=== PATIENT | female | born 1950 | race Caucasian/White ===

== ENCOUNTER 2016-07-28 15:24 | Emergency (ER) | payer MEDICAID ==
[~2016-07-28] VITALS: Ht 149.9 cm; Wt 65.0 kg
[2016-07-28 15:27] VITALS: BP 103/56; PULSE 106; RESP 16; TEMP 97.7; O2SAT 98
--- NOTE | 2016-07-28 15:34 | PD ---
Physical Exam Time Seen by Provider: 15:30 Narrative 66yo F c/o low blood pressure at vascular surgeon office. Dr sent to ER. [place] lightheaded, dizzy and near syncope with low pressure; feeling better now. BP was 89/56 at the office. Reports chest pain and SOB. Stopped taking Enalapril 2 weeks ago. VS reviewed. Patient seen in triage. Awaiting bed placement. Data Data Last Documented VS Vital Signs Date Time Temp Pulse Resp B/P Pulse Ox O2 Delivery O2 Flow Rate FiO2 07/28/16 15:27 97.7 106 16 103/56 98 MDM Supervised Visit with SHEYLA: Melissa Allen July 28, 2016 15:34
[2016-07-28] MEDS ORDERED: AMIT25TA9 PO (15:52)
[2016-07-28] MEDS ORDERED: SERT-132 PO (15:52)
[2016-07-28] MEDS ORDERED: TRAM50TA PO (15:52)
[2016-07-28] MEDS ORDERED: GABA400C5 PO (15:52)
[2016-07-28] MEDS ORDERED: HUMALOG SQ (15:52)
[2016-07-28] MEDS ORDERED: LEVO88TA2 PO (15:52)
[2016-07-28] MEDS ORDERED: DICL75TA PO (15:52)
[2016-07-28] MEDS ORDERED: SODIUM CHLOR 0.9% 1000 ML INJ 1,000 ML IV ONE ×2 (16:00→16:15)
[2016-07-28] MEDS ORDERED: SODIUM CHLORIDE 0.9% FLUSH 10 ML FLUSH IVF PRN (16:00)
[2016-07-28 16:01] VITALS: O2SAT 97
[2016-07-28 16:25] VITALS: BP 93/54; PULSE 93; RESP 18; O2SAT 97
[2016-07-28 16:28] VITALS: BP_SYST 133; BP_SYST 82; BP_DIAS 52; BP_DIAS 60; RESP 18
--- NOTE | 2016-07-28 16:41 | PD ---
HPI Chief Complaint: Dizziness Time Seen by Provider: 15:40 Travel History International Travel<30 days: No Contact w/Intl Traveler<30days: No Traveled to known affect area: No History of Present Illness HPI Patient is a 66 -year-old female presenting to emergency for evaluation of hypotension. Patient was at her doctor's office when her blood pressure was noted to be in the upper 80s systolic. States this happens several times a week , she stopped blood pressure medications 2 weeks ago. Patient reports that she feels dizzy when her blood pressure drops, she reported mild chest pain which resolved prior to arrival. Patient's past medical history significant for type 2 diabetes, fibromyalgia, peripheral vascular disease, neuropathy, thyroid disease, obesity. Daughter states that her blood sugars are not always well- controlled. Patient takes tramadol for pain, last dose was at noon today. PFSH Past Medical History Cardiovascular Problems: Yes (peripheral vascular disease) Cerebrovascular Accident: Yes (TIA) Diabetes: Yes Neurologic: Yes (peripheral neuropathy) Thyroid Disease: Yes Past Surgical History Appendectomy: Yes (exploratory laparoscopy) Section: Yes Social History Alcohol Use: No Tobacco Use: No Allergies-Medications (Allergen,Severity, Reaction): Coded Allergies: Aspirin (Verified Allergy, Unknown, 07/28/16) Sulfa (Verified Allergy, Unknown, 07/28/16) Reported Meds & Prescriptions Reported Meds & Active Scripts Active Reported Levothyroxine (Levothyroxine Sodium) 88 Mcg Tab 88 Mcg PO DAILY Humalog Inj (Insulin Human Lispro) 1,000 Unit/10 Ml Vial 3 Units SQ TID Max dose at bedtime:( )units; sugars< 70,(0)units; sugars 150-199,(1)unit; sugars 200-249,(3)units; sugars 250-299,(5)units; sugars 300-349,(7)units; sugars more than 349,(9)units. Sertraline (Sertraline HCl) 50 Mg Tab 50 Mg PO DAILY Amitriptyline (Amitriptyline HCl) 25 Mg Tab 25 Mg PO HS Diclofenac Sodium DR (Diclofenac Sodium) 75 Mg Tabdr 75 Mg PO BID Gabapentin 400 Mg Cap 400 Cap PO Q8HRS Tramadol (Tramadol HCl) 50 Mg Tab 50 Mg PO Q4H PRN Review of Systems Except as stated in HPI: all other systems reviewed are Neg Eyes: No: Blurred Vision HENT: No: Headaches, Lightheadedness Cardiovascular: Positive: Chest Pain or Discomfort, No: Tachycardia, Syncope Respiratory: No: Shortness of Breath Gastrointestinal: No: Nausea, Abdominal Pain Neurologic: Positive: Dizziness Physical Exam Narrative GENERAL: Obese, well-developed, alert female. Resting comfortably in no acute distress. SKIN: Focused skin assessment warm/dry. HEAD: Atraumatic. Normocephalic. EYES: Pupils equal and round. No scleral icterus. No injection or drainage. ENT: No nasal bleeding or discharge. Mucous membranes pink and moist. NECK: Trachea midline. No JVD. CARDIOVASCULAR: Regular rate and rhythm. No murmur appreciated. RESPIRATORY: No accessory muscle use. Clear to auscultation. Breath sounds equal bilaterally. GASTROINTESTINAL: Abdomen soft, non-tender, nondistended. Hepatic and splenic margins not palpable. MUSCULOSKELETAL: No obvious deformities. No clubbing. No cyanosis. No edema. NEUROLOGICAL: Awake and alert. No obvious cranial nerve deficits. Motor grossly within normal limits. Normal speech. PSYCHIATRIC: Appropriate mood and affect; insight and judgment normal. Data Data Last Documented VS Vital Signs Date Time Temp Pulse Resp B/P Pulse Ox O2 Delivery O2 Flow Rate FiO2 07/28/16 18:27 96 18 154/77 97 Nasal Cannula 2 07/28/16 15:27 97.7 Orders Electrocardiogram (07/28/16 15:47) Ckmb (Isoenzyme) Profile (07/28/16 15:47) Complete Blood Count With Diff (07/28/16 15:47) Comprehensive Metabolic Panel (07/28/16 15:47) Magnesium (Mg) (07/28/16 15:47) Prothrombin Time / Inr (Pt) (07/28/16 15:47) Act Partial Throm Time (Ptt) (07/28/16 15:47) Troponin I (07/28/16 15:47) Chest, Single Ap (07/28/16 15:47) Ecg Monitoring (07/28/16 15:47) Bilateral Bp Monitoring (07/28/16 15:47) Iv Access Insert/Monitor (07/28/16 15:47) Oximetry (07/28/16 15:47) Oxygen Administration (07/28/16 15:47) Sodium Chloride 0.9% Flush (Ns Flush) (07/28/16 16:00) Sodium Chlor 0.9% 1000 Ml Inj (Ns 1000 M (07/28/16 16:00) Urinalysis - C+S If Indicated (07/28/16 15:49) Orthostatic Blood Pressure (07/28/16 15:51) Orthostatic Vital Signs (07/28/16 15:52) Ct Brain W/O Iv Contrast(Rout) (07/28/16 ) Sodium Chlor 0.9% 1000 Ml Inj (Ns 1000 M (07/28/16 16:15) Urine Culture (07/28/16 17:24) Ceftriaxone Inj (Rocephin Inj) (07/28/16 18:15) Labs Laboratory Tests Test 07/28/16 07/28/16 07/28/16 16:04 17:12 17:24 White Blood Count 10.2 TH/MM3 Red Blood Count 4.97 MIL/MM3 Hemoglobin 13.3 GM/DL Hematocrit 41.1 % Mean Corpuscular Volume 82.9 FL Mean Corpuscular Hemoglobin 26.8 PG Mean Corpuscular Hemoglobin 32.3 % Concent Red Cell Distribution Width 17.6 % Platelet Count 473 TH/MM3 Mean Platelet Volume 9.0 FL Neutrophils (%) (Auto) 74.7 % Lymphocytes (%) (Auto) 12.5 % Monocytes (%) (Auto) 5.0 % Eosinophils (%) (Auto) 7.3 % Basophils (%) (Auto) 0.5 % Neutrophils # (Auto) 7.6 TH/MM3 Lymphocytes # (Auto) 1.3 TH/MM3 Monocytes # (Auto) 0.5 TH/MM3 Eosinophils # (Auto) 0.7 TH/MM3 Basophils # (Auto) 0.1 TH/MM3 CBC Comment DIFF FINAL Differential Comment Prothrombin Time 10.5 SEC Prothromb Time International 1.0 RATIO Ratio Activated Partial 26.2 SEC Thromboplast Time Sodium Level 140 MEQ/L Potassium Level 4.2 MEQ/L Chloride Level 106 MEQ/L Carbon Dioxide Level 26.3 MEQ/L Anion Gap 8 MEQ/L Blood Urea Nitrogen 21 MG/DL Creatinine 0.77 MG/DL Estimat Glomerular Filtration 75 ML/MIN Rate Random Glucose 262 MG/DL Calcium Level 8.4 MG/DL Magnesium Level 1.5 MG/DL Total Bilirubin 0.2 MG/DL Aspartate Amino Transf 23 U/L (AST/SGOT) Alanine Aminotransferase 12 U/L (ALT/SGPT) Alkaline Phosphatase 179 U/L Total Creatine Kinase 71 U/L Troponin I LESS THAN 0.02 NG/ML Total Protein 6.3 GM/DL Albumin 2.4 GM/DL Urine Color YELLOW Urine Turbidity CLEAR Urine pH 5.5 Urine Specific [place] 1.027 Urine Protein 30 mg/dL Urine Glucose (UA) 1000 mg/dL Urine Ketones TRACE mg/dL Urine Occult Blood NEG Urine Nitrite NEG Urine Bilirubin NEG Urine Urobilinogen 4.0 MG/DL Urine Leukocyte Esterase NEG Urine RBC LESS THAN 1 /hpf Urine WBC 2 /hpf Urine WBC Clumps RARE Urine Squamous Epithelial 1 /hpf Cells Urine Bacteria RARE /hpf Urine Hyaline Casts 12 /lpf Urine Mucus FEW /lpf Microscopic Urinalysis Comment CULTURE INDICATED MDM Medical Decision Making Medical Screen Exam Complete: Yes Emergency Medical Condition: Yes Interpretation(s) Vital Signs Date Time Temp Pulse Resp B/P Pulse Ox O2 Delivery O2 Flow Rate FiO2 07/28/16 18:27 96 18 154/77 97 Nasal Cannula 2 07/28/16 17:11 93 18 135/62 97 Nasal Cannula 2 07/28/16 16:28 93 18 82/52 94 18 133/60 07/28/16 16:25 93 18 93/54 97 Nasal Cannula 2 07/28/16 16:01 97 Nasal Cannula 2 07/28/16 15:53 97 Nasal Cannula 2 07/28/16 15:27 97.7 106 16 103/56 98 Differential Diagnosis Orthostatic hypotension versus dehydration versus medication side effect versus autonomic dysfunction Narrative Course Patient is a 66-year-old female presenting to emergency evaluation of hypotension. Patient is alert and oriented, she completed dizziness initially. Labs and imaging ordered and pending, patient presents on a monitor and continuous pulse oximetry. IV access was established daughter at bedside. CBC is unremarkable Chemistry is unremarkable Troponin is negative Coags are unremarkable Chest x-ray shows no acute disease Head CT is normal Urinalysis shows elevated glucose, trace ketones, 4.0 urobilinogen, rare white blood cells, rare bacteria, reflex culture pending. Given IV Rocephin in the emergency department as well as 1 L normal saline. The patient's blood pressure responded to IV fluid hydration, patient was a bleed emergency department and is currently asymptomatic. Daughter states that she has an appointment with a masking machine feeder. Patient is encouraged follow-up with her primary doctor and follow-up with a masking machine feeder as scheduled. She was encouraged to return to emergency department for any new or worsening symptoms. She verbalizes understanding of these instructions. Patient is stable for discharge. Diagnosis Primary Impression: Hypotension Qualified Code: I95.9 - Hypotension, unspecified hypotension type Additional Impression: Urinary tract infection Qualified Code: N39.0 - Urinary tract infection without hematuria, site unspecified Referrals: Director Of Curriculum Primary Care Physician Patient Instructions: General Instructions, Hypotension (ED), Urinary Tract Infection in Women (ED) Additional Instructions: Follow-up with your primary doctor Complete full course of antibiotics as prescribed Increase fluid intake Return to emergency department for any new or worsening symptoms Monitor her blood pressure at home, bring results to primary doctor and masking machine feeder Med/Other Pt SpecificInfo: Prescription(s) given Scripts Cephalexin (Keflex)500 Mg Kck192 Mg PO Q6HR 7 Days Ref 0 Prov:Cleopatra Kirkpatrick 07/28/16 Disposition: 01 DISCHARGE HOME Condition: Stable Cleopatra Kirkpatrick July 28, 2016 16:41
[2016-07-28 16:42] LABS: APTT (PATIENT) 26.2 SEC (24.3-30.1); PROTHROMBIN TIME - PATIENT 10.5 SEC (9.8-11.6)
[2016-07-28 17:11] VITALS: BP 135/62; PULSE 93; RESP 18; O2SAT 97
[2016-07-28 17:13] LABS: AUTOMATED NEUTROPHIL # 7.6 TH/MM3 (1.8-7.7); BASOPHIL # 0.1 TH/MM3 (0-0.2); BASOPHIL % 0.5 % (0.0-2.0); EOSINOPHIL # 0.7 TH/MM3 (0-0.4); EOSINOPHIL % 7.3 % (0.0-4.0); HEMATOCRIT 41.1 % (35.0-46.0); HEMO FLAGS DIFF FINAL; LYMPH % 12.5 % (9.0-44.0); LYMPHOCYTE # 1.3 TH/MM3 (1.0-4.8); MEAN CELL VOLUME 82.9 FL (80.0-100.0); MEAN CORPUSCULAR HEMOGLOBIN 26.8 PG (27.0-34.0); MEAN CORPUSCULAR HGB CONC 32.3 % (32.0-36.0); NEUT % 74.7 % (16.0-70.0); PLATELET COUNT 473 TH/MM3 (150-450); RED BLOOD COUNT 4.97 MIL/MM3 (4.00-5.30); RED CELL DISTRIBUTION WIDTH 17.6 % (11.6-17.2); WHITE BLOOD COUNT 10.2 TH/MM3 (4.0-11.0)
--- NOTE | 2016-07-28 17:20 | RADRPT ---
EXAM DATE/TIME: 07/28/2016 16:49 [facility] COMPARISON: No previous studies available for comparison. INDICATIONS : Diziness with low blood pressure. RADIATION DOSE: 56.77 CTDIvol (mGy) MEDICAL HISTORY : None SURGICAL HISTORY : section. ENCOUNTER: Initial ACUITY: 1 day PAIN SCALE: 1/10 LOCATION: Bilateral cranial TECHNIQUE: Multiple contiguous axial images were obtained of the head. Using automated exposure control and adj ustment of the mA and/or kV according to patient size, radiation dose was kept as low as reasonably a chievable to obtain optimal diagnostic quality images. FINDINGS: CEREBRUM: The ventricles are normal for age. No evidence of midline shift, mass lesion, hemorrhage or acute in farction. No extra-axial fluid collections are seen. POSTERIOR FOSSA: The cerebellum and brainstem are intact. The 4th ventricle is midline. The cerebellopontine angle i s unremarkable. EXTRACRANIAL: The visualized portion of the orbits is intact. SKULL: The calvaria is intact. No evidence of skull fracture. CONCLUSION: Head CT within normal limits. Angel Jaimes MD on July 28, 2016 at 17:08 Board Certified Radiologist. This report was verified electronically.
--- NOTE | 2016-07-28 17:21 | RADRPT ---
EXAM DATE/TIME: 07/28/2016 16:56 [facility] COMPARISON: No previous studies available for comparison. INDICATIONS : Chest pain. MEDICAL HISTORY : None. SURGICAL HISTORY : None. ENCOUNTER: Initial ACUITY: 1 day PAIN SCORE: 6/10 LOCATION: middle chest. FINDINGS: Single AP view of the chest. Lung volumes are low. The lungs are clear. Cardiomediastinal silhouette within normal limits. No evidence of pleural effusion or pneumothorax. CONCLUSION: No acute cardiopulmonary disease identified. Angel Jaimes MD on July 28, 2016 at 17:18 Board Certified Radiologist. This report was verified electronically.
[2016-07-28 17:52] LABS: BACTERIA, URINE RARE /hpf; BLOOD, URINE NEG (NEG); COMMENT (UR) CULTURE INDICATED; CULTURE IF INDICATED CULTURE INDICATED; GLUCOSE,URINE 1000 mg/dL (NEG); HYALINE CAST, URINE 12 /lpf (RARE); KETONE, URINE TRACE mg/dL (NEG); MUCUS URINE FEW /lpf (OCC); NITRITE,URINE NEG (NEG); PH, URINE 5.5 (5.0-8.5); SQUAMOUS EPITHELIAL CELL URINE 1 /hpf (0-5); URINE COLOR YELLOW (YELLW/STRAW)
[2016-07-28] MEDS ORDERED: cefTRIAXone INJ 1,000 MG in SODIUM CHLORIDE 0.9% INJ 100 ML IV ONE (18:15)
[2016-07-28 18:22] LABS: ALKALINE PHOSPHATASE 179 U/L (45-117); ALT (GPT) 12 U/L (10-53); ANION GAP 8 MEQ/L (5-15); AST (GOT) 23 U/L (15-37); BICARBONATE 26.3 MEQ/L (21.0-32.0); BLOOD UREA NITROGEN 21 MG/DL (7-18); CHLORIDE 106 MEQ/L (98-107); GLOMERULAR FILTRATION RATE 75 ML/MIN (>89); MAGNESIUM 1.5 MG/DL (1.5-2.5); SODIUM (NA) 140 MEQ/L (136-145); TOTAL BILIRUBIN ADULT 0.2 MG/DL (0.2-1.0)
[2016-07-28 18:23] LABS: POTASSIUM 4.2 MEQ/L (3.5-5.1)
[2016-07-28 18:24] LABS: CREATINE KINASE 71 U/L (26-192)
[2016-07-28 18:27] VITALS: BP 154/77; PULSE 96; RESP 18; O2SAT 97
[2016-07-28] MEDS ORDERED: CEPH-460 PO (18:55)
--- NOTE | 2016-07-29 05:54 | EKG ---
Date Performed: 07/28/2016 Time Performed: 15:57:27 PTAGE: 66 years EKG: Sinus rhythm MODERATE VOLTAGE CRITERIA FOR LVH, CONSIDER NORMAL VARIANT NONSPECIFIC T-WAVE ABNORMALITY BORDERLINE ECG NO PREVIOUS TRACING DOCTOR: Bhavani Aburto Interpretating Date/Time 07/29/2016 05:53:26
== END 2016-07-28 18:56 | disposition home or self-care (01) ==
LOC: NEPC 15:24
DX: I95.9 Hypotension, unspecified (principal); N39.0 Urinary tract infection, site not specified; R94.31 Abnormal electrocardiogram [ECG] [EKG]; I73.9 Peripheral vascular disease, unspecified; E11.9 Type 2 diabetes mellitus without complications; Z79.4 Long term (current) use of insulin
CPT/HCPCS: 70450; 71010; 80053; 81001; 82550; 83735; 84484; 85025; 85610; 85730; 87086; 93005; 96361; 96374; 99285; J0696; J7030

== ENCOUNTER 2016-11-18 18:22 | Emergency (ER) | payer MEDICAID ==
[~2016-11-18] VITALS: Ht 152.4 cm; Wt 65.0 kg
[~2016-11-18 18:22] MED LIST: AMIT25TA9 PO; CEPH-460 PO; DICL75TA PO; GABA400C5 PO; HUMALOG SQ; LEVO88TA2 PO; SERT-132 PO; TRAM50TA PO
[2016-11-18 18:25] VITALS: BP 115/55; PULSE 100; RESP 18; TEMP 98.9; O2SAT 99
--- NOTE | 2016-11-18 18:39 | PD ---
Physical Exam Date Seen by Provider: Nov 18, 2016 Time Seen by Provider: 18:38 Narrative 66 year old female here for eye injury. Possibly cut it with a nail. happened last night. Concerned her lens might have moved. Pain is 8/10. No other injuries. Vitals stable in triage. Awaiting bed placement Data Data Last Documented VS Vital Signs Date Time Temp Pulse Resp B/P (MAP) Pulse Ox O2 Delivery O2 Flow Rate FiO2 11/18/16 18:25 98.9 100 18 115/55 (75) 99 MDM Medical Record Reviewed: Yes Supervised Visit with SHEYLA: Maurice Schuster Nov 18, 2016 18:39
[2016-11-18] MEDS ORDERED: PROPARACAINE HCL 0.5% OPHT SOLN 15 ML BTL EACH EYE ONE ×2 (21:45→22:00)
[2016-11-18] MEDS ORDERED: ERYTOIN10 RIGHT EYE (22:26)
--- NOTE | 2016-11-18 22:27 | PD ---
HPI Chief Complaint: Eye Problems/Injury Time Seen by Provider: 21:49 Travel History International Travel<30 days: No Contact w/Intl Traveler<30days: No Traveled to known affect area: No History of Present Illness HPI 66-year-old female here for evaluation of right eye pain after accidentally scratching her eye yesterday. The patient has an artificial lens in that eye that was placed in [place] in 2010. She had immediate car that shows that this is an [employer] IQ implant. Pain is severe with severe photophobia. She tells me that she can only see shadows through the eye. She tried taking tramadol and Tylenol 3 at home without improvement. PFSH Past Medical History Cardiovascular Problems: Yes (peripheral vascular disease) Cerebrovascular Accident: Yes (TIA) Diabetes: Yes Neurologic: Yes (peripheral neuropathy) Thyroid Disease: Yes Past Surgical History Appendectomy: Yes (exploratory laparoscopy) Section: Yes Social History Alcohol Use: No Tobacco Use: No Allergies-Medications (Allergen,Severity, Reaction): Coded Allergies: Sulfa (Sulfonamide Antibiotics) (Unverified Allergy, Unknown, 11/18/16) aspirin (Unverified Allergy, Unknown, 11/18/16) Reported Meds & Prescriptions Reported Meds & Active Scripts Active Erythromycin Opth Oint 5 Mg/Gm Oint 1 Applic RIGHT EYE QID Keflex (Cephalexin) 500 Mg Cap 500 Mg PO Q6HR 7 Days Reported Levothyroxine (Levothyroxine Sodium) 88 Mcg Tab 88 Mcg PO DAILY Humalog Inj (Insulin Human Lispro) 1,000 Unit/10 Ml Vial 3 Units SQ TID Max dose at bedtime:( )units; sugars< 70,(0)units; sugars 150-199,(1)unit; sugars 200-249,(3)units; sugars 250-299,(5)units; sugars 300-349,(7)units; sugars more than 349,(9)units. Sertraline (Sertraline HCl) 50 Mg Tab 50 Mg PO DAILY Amitriptyline (Amitriptyline HCl) 25 Mg Tab 25 Mg PO HS Diclofenac Sodium DR (Diclofenac Sodium) 75 Mg Tabdr 75 Mg PO BID Gabapentin 400 Mg Cap 400 Cap PO Q8HRS Tramadol (Tramadol HCl) 50 Mg Tab 50 Mg PO Q4H PRN Review of Systems Except as stated in HPI: all other systems reviewed are Neg Physical Exam Narrative GENERAL: Well-developed, well-nourished, mild distress secondary to eye pain. SKIN: Focused skin assessment warm/dry. HEAD: Atraumatic. Normocephalic. EYES: Bilateral scleral injection, right greater than left. Small amount of purulent drainage from right eye. Cornea is slightly clouded. Pupils are equal , round, 3 mm, reactive to light. Fluorescein stain shows a large circular/ central corneal abrasion to the right cornea, negative Mylene sign, no dendritic lesions. Pressures in the left eye measured 21, 18, and 23. Pressures in the right eye measure 18, 15, and 19 mmHg. No proptosis. EOMI. NEUROLOGICAL: Awake and alert. No obvious cranial nerve deficits. Motor grossly within normal limits. Normal speech. PSYCHIATRIC: Appropriate mood and affect; insight and judgment normal. Data Data Last Documented VS Vital Signs Date Time Temp Pulse Resp B/P (MAP) Pulse Ox O2 Delivery O2 Flow Rate FiO2 11/18/16 18:25 98.9 100 18 115/55 (75) 99 Orders Orders Proparacaine 0.5% Opth Soln (Alcaine 0.5 (11/18/16 21:45) Proparacaine 0.5% Opth Soln (Alcaine 0.5 (11/18/16 22:00) Erythromycin 0.5% Opth Oint (Ilotycin 0. (11/18/16 22:30) Tetanus/Diphtheria Tox Adult (Tetanus/Di (11/18/16 22:30) MDM Medical Decision Making Medical Screen Exam Complete: Yes Emergency Medical Condition: Yes Differential Diagnosis Corneal abrasion, traumatic iritis, acute angle-closure glaucoma, lens dislocation Narrative Course EYES: Bilateral scleral injection, right greater than left. Small amount of purulent drainage from right eye. Cornea is slightly clouded. Pupils are equal , round, 3 mm, reactive to light. Fluorescein stain shows a large circular/ central corneal abrasion to the right cornea, negative Mylene sign. Pressures in the left eye measured 21, 18, and 23. Pressures in the right eye measure 18 , 15, and 19 mmHg. Patient experienced significant relief of pain after proparacaine eyedrop applied. Case discussed with on-call tire inspector Dr. Duran. Recommends erythromycin eye ointment and follow-up in her office tomorrow. Tetanus updated. Both the patient and the patient's daughter were made aware of plan. Diagnosis Primary Impression: Corneal abrasion, right Qualified Codes: S05.01XA - Injury of conjunctiva and corneal abrasion without foreign body, right eye, initial encounter Referrals: Antonia Duran MD 1 day [employer] Additional Instructions: Call tire inspector Dr. Antonia Duran's office at 8:00 AM tomorrow morning to schedule an appointment for tomorrow. Return to the emergency department for worsening symptoms or any other concerns. Scripts Erythromycin Opth Oint (Erythromycin Opth Oint) 5 Mg/Gm Oint 1 APPLIC RIGHT EYE QID for Infection, #1 TUBE 0 Refills Prov: Mu Mcclendon MD 11/18/16 Disposition: 01 DISCHARGE HOME Condition: Stable Mu Mcclendon MD Nov 18, 2016 22:27
[2016-11-18] MEDS ORDERED: ERYTHROMYCIN 0.5% OPTH OINT 3.5 GM TUBO RIGHT EYE ONE (22:30)
[2016-11-18] MEDS ORDERED: TETANUS/DIPHTHERIA TOXOID ADULT 0.5 ML VIAL IM ONE (22:30)
[2016-11-24] MEDS ORDERED: DOXY100C PO (14:23)
[2016-11-24] MEDS ORDERED: CEFA1SOL RIGHT EYE (14:23)
[2016-11-24] MEDS ORDERED: AK-T0.3S RIGHT EYE (14:23)
[2016-11-24] MEDS ORDERED: ATRO1SOL11 RIGHT EYE (14:24)
== END 2016-11-18 22:56 | disposition home or self-care (01) ==
LOC: NEPD 18:22
DX: S05.01XA Injury of conjunctiva and corneal abrasion without foreign body, right eye, initial encounter (principal); I73.9 Peripheral vascular disease, unspecified; E11.42 Type 2 diabetes mellitus with diabetic polyneuropathy; W22.8XXA Striking against or struck by other objects, initial encounter; Z79.4 Long term (current) use of insulin; Z79.899 Other long term (current) drug therapy; Z23 Encounter for immunization; Z86.73 Personal history of transient ischemic attack (TIA), and cerebral infarction without residual deficits; Z88.2 Allergy status to sulfonamides
CPT/HCPCS: 90471; 90714